=== PATIENT | male | born 1980 | race Caucasian/White ===

== ENCOUNTER 2019-03-19 00:17 | Emergency (ER) | payer OTHER ==
[2019-03-19 01:18] VITALS: BMI 38.3
--- NOTE | 2019-03-19 01:39 | PDOC ---
History of Present Illness - General Chief Complaint: Headache Stated Complaint: HEADACHE/CHEST DISCOMFORT Time Seen by Provider: 03/19/19 01:39 History Source: Patient Exam Limitations: No Limitations - History of Present Illness Initial Comments: Pt is a 39 yo M, with PMH of HLD and asthma, who is presenting with complaints of L-sided headache, vertigo, and chest pressure since yesterday morning. Pt states he has been lying in bed when the pain starts, with no exertion or trauma. Pt states he has substernal chest pressure that does not radiate, and is associated with SOB and vertigo, lasting for about 15 minutes. Pt states this is not similar to his asthma exacerbations, and he has no history of anxiety or panic attacks. Pt states he has not f/u'd with his PCP and has not been taking his prescribed medications. Pt denies any fevers/chills, headache, vision changes, syncope, palpitations, nausea/vomiting, abdominal pain, urinary symptoms, diarrhea/constipation, or leg swelling. Allergies: NKDA PCP: none Social: Pt denies any cigarette, alcohol, or drug use. Pt denies any recent travel or sick contacts. Surgical: no relevant history. Family: no relevant history. 03/19/19 04:26 Past History - Travel Traveled outside of the country in the last 30 days: No Close contact w/someone who was outside of country & ill: No - Past Medical History Allergies/Adverse Reactions: Allergies Allergy/AdvReac Type Severity Reaction Status Date / Time No Known Allergies Allergy Verified 03/19/19 01:18 Asthma: Yes COPD: No - Immunization History Immunization Up to Date: Yes - Suicide/Smoking/Psychosocial Hx Smoking History: Never smoked Have you smoked in the past 12 months: No Information on smoking cessation initiated: No Hx Alcohol Use: Yes Drug/Substance Use Hx: No Neuro Specific PMHX - Complaint Specific PMHX Glaucoma: No Herniated Disk: No Laminectomy: No Migraine: No Multiple Sclerosis: No Neuropathy: No TIA: No Review of Systems - Review of Systems Able to Perform ROS?: Yes Is the patient limited Swedish proficient: No Constitutional: Yes: Weight Stable. No: Chills, Diaphoresis, Fever, Loss of Appetite, Malaise, Weakness HEENTM: No: Blurred Vision, Recent change in vision, Double Vision, Nose Congestion, Throat Pain, Throat Swelling, Difficulty Swallowing Respiratory: Yes: Shortness of Breath, SOB at Rest. No: Cough, Orthopnea, Wheezing, Productive cough, Hemoptysis Cardiac (ROS): Yes: Chest Pain. No: Edema, Irregular Heart Rate, Lightheadedness, Palpitations, Syncope, Chest Tightness ABD/GI: No: Diarrhea, Nausea, Poor Appetite, Poor Fluid Intake, Vomiting, Abdominal cramping : No: Burning, Dysuria, Pain, Urgency Musculoskeletal: No: Back Pain, Joint Pain, Joint Swelling, Muscle Pain, Muscle Weakness, Neck Pain Integumentary: No: Rash Neurological: Yes: See HPI, Headache, Paresthesia, Dizziness (vertigo). No: Numbness, Weakness, Unsteady Gait Psychiatric: No: Sleep Pattern Change, Change in Appetite Endocrine: No: Increased Urine, Change in Weight Hematologic/Lymphatic: No: Anemia, Blood Clots, Easy Bleeding, Easy Bruising All Other Systems: Reviewed and Negative *Physical Exam - Vital Signs Last Vital Signs Temp Pulse Resp BP Pulse Ox 98.2 F 100 H 16 128/90 98 03/19/19 00:17 03/19/19 00:17 03/19/19 00:17 03/19/19 00:17 03/19/19 00:17 - Physical Exam Comments: Tachycardic to low 100s, pt afebrile. Pt in NAD, obese body habitus. Pt alert and oriented x3. classer generally intact, muscular strength and sensation intact. No midline spinal tenderness, step-offs, or crepitus. Head normocephalic, atraumatic. Eyes PERRLA, EOMI. Oropharynx without erythema or exudates, no LAD b/l. Dry mucous membranes. No nasal congestion, hearing intact. Clear heart sounds, S1/S2, no JVD, b/l pedal edema, or heart murmur. Clear lung sounds, no respiratory distress, wheezes, crackles, or accessory muscle use. No abdominal or CVA tenderness to palpation, no rebound, no guarding. Abdomen soft, non-distended, and with normoactive bowel sounds. Skin without jaundice or rash. 03/19/19 02:14 ED Treatment Course - LABORATORY CBC & Chemistry Diagram: 03/19/19 02:00 03/19/19 02:00 Medical Decision Making - Medical Decision Making Pt was seen at bedside, also will be seen by attending Dr. Pan. Pt presenting with complaints of L-sided headache, vertigo, and chest pressure since yesterday morning. Pt states he has been lying in bed when the pain starts, with no exertion or trauma. Pt states he has substernal chest pressure that does not radiate, and is associated with SOB and vertigo, lasting for about 15 minutes. Pt states this is not similar to his asthma exacerbations, and he has no history of anxiety or panic attacks. Pt states he has not f/u'd with his PCP and has not been taking his prescribed medications. Pt denies any fevers/chills , headache, vision changes, syncope, palpitations, nausea/vomiting, abdominal pain, urinary symptoms, diarrhea/constipation, or leg swelling. Considering migraine vs ACS/atypical chest pain/angina vs electrolyte imbalance. Ordered work-up including CBC, CMP, Mg, coags, cardiac profile, chest x-ray, EKG. Provided 1 L IV NS, 25 mg IV benadryl, 10 mg IV reglan, and 1 g IV ofirmev for improvement of headache and chest pressure. Will continue to reassess pt and monitor for symptomatic improvement. ECG: NSR, intervals WNL (HR 91, IL 138, QRS 82, QTc 423). No TWIs or significant ST segment changes. No significant changes from prior ECG (December 2017). 03/19/19 02:15 CBC, CMP WNL, mild elevations in LFTs, will have pt f/u with PCP Chest x-ray shows no acute pathology (read with Dr. Pan). ECG WNL. Pt states pain improved significantly after interventions. HR improved after IVFs. Considering normal lab results and imaging, pt can be discharged to home with follow-up. Pt advised to follow-up with PCP in 1-2 days. Strict return precautions provided with pt understanding. 03/19/19 04:21 *DC/Admit/Observation/Transfer Diagnosis at time of Disposition: Chest pain Qualifiers: Chest pain type: unspecified Qualified Code(s): R07.9 - Chest pain, unspecified Headache Qualifiers: Headache type: unspecified Headache chronicity pattern: acute headache Intractability: not intractable Qualified Code(s): R51 - Headache - Discharge Dispostion Disposition: HOME Condition at time of disposition: Improved Decision to Admit order: No - Referrals Referrals: [facility] [place] [facility] [place] [Provider Group] - Patient Instructions Printed Discharge Instructions: DI for Atypical Chest Pain Additional Instructions: You were seen in the ER today for headache and chest pain. The results of your labs and imaging today were normal, except for mild elevations of your liver enzymes. Please follow-up with your primary care doctor within 1-2 days to discuss your visit and make sure your symptoms have improved. Please return to the ER if you have any worsening pain, development of fevers or chills, loss of consciousness, inability to tolerate food or fluids, or any other concerns. - Post Discharge Activity Forms/Work/School Notes: Back to Work
[2019-03-19] MEDS ORDERED: METOCLOPRAMIDE HCL INJECTION 10 MG/2 ML VIAL IVPUSH ONE (02:01)
[2019-03-19] MEDS ORDERED: ACETAMINOPHEN 1000 MG/100 ML VIAL (NON FORMULARY) IVPB ONE (02:01)
[2019-03-19] MEDS ORDERED: SODIUM CHLORIDE 1,000 ML IV STA (02:03)
[2019-03-19 02:17] LABS: BASO % 0.7 % (0-2.0); EOS % 1.4 % (0-4.5); HEMATOCRIT 43.4 % (35.4-49); HEMOGLOBIN 14.3 GM/dL (11.7-16.9); LYMPH % 36.1 % (8-40); MCH 28.5 pg (25.7-33.7); MEAN CELL VOLUME 86.5 fl (80-96); MONO % 9.7 % (3.8-10.2); NEUT % 52.1 % (42.8-82.8); PLATELET COUNT 203 K/MM3 (134-434); RBC 5.01 M/mm3 (4.00-5.60); WHITE BLOOD COUNT 6.1 K/mm3 (4.0-10.0)
[2019-03-19] MEDS ORDERED: METOCLOPRAMIDE HCL INJECTION 10 MG/2 ML VIAL ONE (02:27)
[2019-03-19] MEDS ORDERED: ACETAMINOPHEN INJECTION 100 ML IVPB ONE (02:27)
[2019-03-19 02:36] LABS: INR 0.9 (0.83-1.09); PROTHROMBIN TIME (PATIENT) 10.6 SEC (9.7-13.0)
[2019-03-19 03:06] LABS: ALBUMIN 3.9 g/dl (3.4-5.0); ALK PHOS 95 U/L (45-117); ANION GAP 5 MMOL/L (8-16); BILIRUBIN,TOTAL 0.2 mg/dL (0.2-1); BLOOD UREA NITROGEN 17.9 mg/dL (7-18); CHLORIDE 105 mmol/L (98-107); CO2 28 mmol/L (21-32); CREATININE 0.9 mg/dL (0.55-1.3); GLUCOSE,RANDOM 104 mg/dL (74-106); MAGNESIUM 2.1 mg/dL (1.8-2.4); POTASSIUM 4.6 mmol/L (3.5-5.1); SGOT/AST 54 U/L (15-37); SGPT/ALT 134 U/L (13-61); SODIUM 139 mmol/L (136-145); TOT PROT 7.5 g/dl (6.4-8.2)
--- NOTE | 2019-03-19 04:07 | PDOC ---
Attending Attestation - Resident Resident Name: Rosie Peng - ED Attending Attestation I have performed the following: I have examined & evaluated the patient, The case was reviewed & discussed with the resident, I agree w/resident's findings & plan, Exceptions are as noted - HPI HPI: 03/19/19 04:04 39 M with no PMH presenting with 1 day of chest pain and headaches. Pt states that his headache and chest pain began at the same time last night. States that the pain is L sided, non-radiating. It was associated with SOB, but this has resolved. Pt also reports resolution of his chest pain after several hours. However, pt states that his headache is persistent. It is also left-sided. Not associated with nausea or vomiting. No F/C. No neck pain. Denies worst headache of life, denies thunderclap. - Physicial Exam PE: 03/19/19 04:05 "GENERAL: Awake, alert, and fully oriented, in no acute distress. HEAD: No signs of trauma EYES: PERRLA, EOMI, sclera anicteric, conjunctiva clear ENT: Auricles normal inspection, hearing grossly normal, nares patent, oropharynx clear without exudates. Moist mucosa NECK: Nontender, no stepoffs, Normal ROM, supple, no lymphadenopathy, JVD, or masses LUNGS: Breath sounds equal, clear to auscultation bilaterally. No wheezes, and no crackles HEART: Regular rate and rhythm, normal S1 and S2, no murmurs, rubs or gallops ABDOMEN: Soft, nontender, normoactive bowel sounds. No guarding, no rebound. No masses EXTREMITIES: Normal range of motion, no edema. No clubbing or cyanosis. No cords, erythema, or tenderness NEUROLOGICAL: Cranial nerves II through XII intact. 5/5 strength and sensation in all extremities, Normal speech, normal gait, normal cerebellar function SKIN: Warm, Dry, normal turgor, no rashes or lesions noted. - Medical Decision Making 03/19/19 04:05 39 M with L sided chest pain and SOB, now resolved, as well as headache. EKG without any evidence of ischemia. Pt is mildly tachycardic, so will r/o PE with ddimer. Pt without any signs of meningitis/SAH. - Labs, trop, ddimer - IVF, tylenol, reglan - Reassess 03/19/19 04:15 Labs wnl, dimer negative, trop negative CXR clear on my read PT reassessed - now with complete resolution of SHEN. COntinues to deny CP/SOB. Pt is well appearing, with normal vitals. Clinically stable for DC at this time. I discussed the physical exam findings, ancillary test results and final diagnoses with the patient. I answered all of the patient's questions. The patient was satisfied with the care received and felt comfortable with the discharge plan and treatment plan. The patient agrees to follow up with the primary care physician within 24-72 hours.
[2019-03-19 04:37] VITALS: BP 126/81; PULSE 91; TEMP 97.9
--- NOTE | 2019-03-19 11:14 | EKG ---
Test Reason : Blood Pressure : / mmHG Vent. Rate : 091 BPM Atrial Rate : 091 BPM P-R Int : 138 ms QRS Dur : 082 ms QT Int : 344 ms P-R-T Axes : 044 060 011 degrees QTc Int : 423 ms NORMAL SINUS RHYTHM NORMAL ECG WHEN COMPARED WITH ECG OF 23-DEC-2017 00:18, NO SIGNIFICANT CHANGE WAS FOUND Confirmed by CALI BOLIVAR MD ([id number]) on 03/19/2019 11:14:41 AM Referred By: Confirmed By:CALI BOLIVAR MD
== END 2019-03-19 04:42 | disposition home or self-care (01) ==
LOC: JER 00:17
PROC: 3E033NZ Introduction of Analgesics, Hypnotics, Sedatives into Peripheral Vein, Percutaneous Approach (ICD-10-PCS; principal; 2019-03-19)
PROC: 3E033GC Introduction of Other Therapeutic Substance into Peripheral Vein, Percutaneous Approach (ICD-10-PCS; 2019-03-19)
PROC: 3E0337Z Introduction of Electrolytic and Water Balance Substance into Peripheral Vein, Percutaneous Approach (ICD-10-PCS; 2019-03-19)
DX: R51 Headache (principal)
CPT/HCPCS: 36415; 71046-TC-FY; 80053; 82550; 82553; 83735; 84484; 85025; 85379; 85610; 93005; 93010; 96361; 96374; 96375; 96376; 99283-25; J0131; J7030

== ENCOUNTER 2019-06-13 14:41 | Emergency (ER) | payer OTHER ==
--- NOTE | 2019-06-13 15:22 | PDOC ---
Rapid Medical Evaluation Time Seen by Provider: 06/13/19 15:21 Medical Evaluation: Allergies Allergy/AdvReac Type Severity Reaction Status Date / Time No Known Allergies Allergy Verified 03/19/19 01:18 06/13/19 15:21 CC: retrosternal sharp pain after eating [employer]. +SOB PE: pain reproducible over sternum. No m/r/g. Orders: ekg, labs, CXR Patient will proceed to ER for further evaluation. Discharge Disposition - Diagnosis Chest pain - Referrals - Patient Instructions - Post Discharge Activity
[2019-06-13 15:23] VITALS: BMI 34.8
[2019-06-13] MEDS ORDERED: MAG HYDROX/AL HYDROX/SIMETH 30 ML UNIT-DOSE CUP PO ONE (15:23)
[2019-06-13] MEDS ORDERED: LIDOCAINE VISCOUS 2% ORAL/TOP 20 ML UNIT-DOSE CUP PO ONE (15:23)
[2019-06-13 16:00] LABS: BASO % 0.9 % (0-2.0); EOS % 0.8 % (0-4.5); HEMOGLOBIN 15.6 GM/dL (11.7-16.9); LYMPH % 33.4 % (8-40); MCH 28.8 pg (25.7-33.7); MCHC 33.2 g/dl (32.0-35.9); MEAN CELL VOLUME 86.7 fl (80-96); MEAN PLT VOLUME 8.9 fl (7.5-11.1); MONO % 7.5 % (3.8-10.2); NEUT % 57.4 % (42.8-82.8); PH,URINE 6.5 (5.0-8.0); PLATELET COUNT 231 K/MM3 (134-434); RBC 5.42 M/mm3 (4.00-5.60); RDW 14.1 % (11.9-15.9); URINE APPEARANCE CLEAR; URINE BILIRUBIN NEGATIVE (NEGATIVE); URINE COLOR YELLOW; URINE GLUCOSE (UA) NEGATIVE (NEGATIVE); URINE KETONE TRACE (NEGATIVE); URINE LEUK ESTERASE NEGATIVE (NEGATIVE); URINE NITRITE NEGATIVE (NEGATIVE); URINE PROTEIN NEGATIVE (NEGATIVE); WHITE BLOOD COUNT 5.7 K/mm3 (4.0-10.0)
[2019-06-13 16:18] LABS: INR 0.95 (0.83-1.09); PROTHROMBIN TIME (PATIENT) 11.2 SEC (9.7-13.0)
[2019-06-13] MEDS ORDERED: ALPRAZolam 0.25 MG TABLET PO ONE (16:28)
[2019-06-13 16:31] LABS: ALBUMIN 4.3 g/dl (3.4-5.0); BILIRUBIN,TOTAL 0.6 mg/dL (0.2-1); BLOOD UREA NITROGEN 13.7 mg/dL (7-18); CALCIUM 9.1 mg/dL (8.5-10.1); CREATININE 1.2 mg/dL (0.55-1.3); MAGNESIUM 2.2 mg/dL (1.8-2.4); TOT PROT 7.7 g/dl (6.4-8.2)
[2019-06-13] MEDS ORDERED: ALPRAZolam 0.25 MG TABLET ONE (16:40)
[2019-06-13] MEDS ORDERED: LIDOCAINE VISCOUS 2% ORAL/TOP 20 ML UNIT-DOSE CUP ONE (16:40)
[2019-06-13] MEDS ORDERED: MAG HYDROX/AL HYDROX/SIMETH 30 ML UNIT-DOSE CUP ONE (16:41)
--- NOTE | 2019-06-13 16:41 | PDOC ---
Attending Attestation - Resident Resident Name: Kenneth Pena - ED Attending Attestation I have performed the following: I have examined & evaluated the patient, The case was reviewed & discussed with the resident, I agree w/resident's findings & plan, Exceptions are as noted - HPI HPI: 06/13/19 16:39 39-year-old male complains of atraumatic sharp pleuritic left sided anterior chest wall pain associated with palpitations and shortness of breath shortly prior to arrival. Patient denies fever/chills/cigarette smoke/toxic ingestion. - Physicial Exam PE: 06/13/19 16:39 Patient is awake and alert, well-nourished, anxious appearing, tachycardic Normocephalic, atraumatic PERRLA, EOMI No JVD Lungs are clear Tachycardic, regular No lower extremity edema Abdomen is soft, nontender nondistended - Medical Decision Making 06/13/19 16:40 Patient is an anxious appearing 39-year-old male who presents with atraumatic pleuritic left-sided chest discomfort. EKG reveals no evidence of acute ischemia or right-sided heart strain, sinus tachycardia is noted. Differential diagnosis includes pneumothorax versus PE versus musculoskeletal pain with associated anxiety. Will obtain CBC/CMP/d-dimer. Will obtain chest x-ray with inspiratory and expiratory phases. Will obtain bedside ultrasound. Will administer p.o. Xanax for anxiety. Will reassess.
--- NOTE | 2019-06-13 16:50 | PDOC ---
History of Present Illness - General Chief Complaint: Chest Pain Stated Complaint: CHEST PAIN/ SOB Time Seen by Provider: 06/13/19 15:21 History Source: Patient Exam Limitations: No Limitations - History of Present Illness Initial Comments: 06/13/19 16:15 Aleks Shaw is a 39M with PMH asthma presenting with one day acute onset chest pain. Patient reports eating chicken at [facility] 3 hours [employer]. Then began to drive on [address] when he began having sudden onset L-sided chest pain, non-radiating, described as sharp and with a pressure on his chest. Non-radiating. Denies any history of GERD, no nausea, no vomiting. 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 Has had one episode of a similar chest pain in the past which he says is related to bed bugs, was living in a house with poor ventilation and full of bed bugs and began having chest pain and SOB. Denies any other cardiac history in self or family. History of asthma with an inhaler, has not used recently. NKDA. No medications taken. Reports hospital stay for gastritis related to taking Aleve a few months ago. Past History - Past Medical History Allergies/Adverse Reactions: Allergies Allergy/AdvReac Type Severity Reaction Status Date / Time No Known Allergies Allergy Verified 06/13/19 15:23 Asthma: Yes COPD: No Hypercholesterolemia: Yes - Immunization History Immunization Up to Date: Yes - Psycho Social/Smoking Cessation Hx Smoking History: Never smoked Have you smoked in the past 12 months: No Information on smoking cessation initiated: No Hx Alcohol Use: No Drug/Substance Use Hx: No Review of Systems - Review of Systems Constitutional: No: Chills, Fever HEENTM: No: Symptoms Reported Respiratory: No: Cough, Shortness of Breath, Wheezing Cardiac (ROS): Yes: Chest Pain, Chest Tightness. No: Lightheadedness, Palpitations, Syncope ABD/GI: No: Symptoms Reported : No: Symptoms Reported Musculoskeletal: No: Symptoms Reported Integumentary: No: Symptoms Reported Neurological: No: Symptoms reported Psychiatric: Yes: Anxiety Endocrine: No: Symptoms Reported Hematologic/Lymphatic: No: Symptoms Reported All Other Systems: Reviewed and Negative *Physical Exam - Vital Signs Last Vital Signs Temp Pulse Resp BP Pulse Ox 97.9 F 112 H 19 112/75 97 06/13/19 15:21 06/13/19 15:21 10/02/19 15:21 06/13/19 15:21 06/13/19 15:21 - Physical Exam General Appearance: Yes: Nourished, Appropriately Dressed, Mild Distress, Obese HEENT: positive: EOMI, MARY, Normal Voice, Symmetrical, Pharynx Normal, Hearing Grossly Normal. negative: Scleral Icterus (R), Scleral Icterus (L), Pharyngeal Erythema, Tonsillar Exudate, Tonsillar Erythema Neck: positive: Normal Thyroid, Supple. negative: Tender, Lymphadenopathy (R), Lymphadenopathy (L) Respiratory/Chest: positive: Chest Tender (reproducible chest tenderness L pectoral), Lungs Clear, Normal Breath Sounds. negative: Respiratory Distress, Accessory Muscle Use, Crackles, Rales, Rhonchi Cardiovascular: positive: Regular Rhythm, Tachycardia. negative: Murmur Gastrointestinal/Abdominal: positive: Normal Bowel Sounds, Flat, Soft. negative : Tender, Guarding, Rebound Musculoskeletal: positive: Normal Inspection. negative: CVA Tenderness Extremity: positive: Normal Capillary Refill, Normal Inspection, Normal Range of Motion, Tender Integumentary: positive: Normal Color, Dry, Warm Neurologic: positive: Fully Oriented, Alert, Normal Mood/Affect, Normal Response ED Treatment Course - LABORATORY CBC & Chemistry Diagram: 06/13/19 15:39 06/13/19 15:39 - ADDITIONAL ORDERS Additional order review: Laboratory Results 06/13/19 06/13/19 06/13/19 15:39 15:39 15:39 PT with INR 11.20 INR 0.95 Sodium 141 Potassium 4.0 Chloride 106 Carbon Dioxide 29 Anion Gap 6 L BUN 13.7 Creatinine 1.2 Est GFR (CKD-EPI)AfAm 89.00 Est GFR (CKD-EPI)NonAf 76.79 Random Glucose 119 H Calcium 9.1 Magnesium 2.2 Total Bilirubin 0.6 AST 34 ALT 85 H Alkaline Phosphatase 78 Creatine Kinase Troponin I Total Protein 7.7 Albumin 4.3 Urine Color Yellow Urine Appearance Clear Urine pH 6.5 Ur Specific [place] 1.023 Urine Protein Negative Urine Glucose (UA) Negative Urine Ketones Trace H Urine Blood Negative Urine Nitrite Negative Urine Bilirubin Negative Urine Urobilinogen 1.0 Ur Leukocyte Esterase Negative 06/13/19 15:39 PT with INR INR Sodium Potassium Chloride Carbon Dioxide Anion Gap BUN Creatinine Est GFR (CKD-EPI)AfAm Est GFR (CKD-EPI)NonAf Random Glucose Calcium Magnesium Total Bilirubin AST ALT Alkaline Phosphatase Creatine Kinase 249 Troponin I < 0.02 Total Protein Albumin Urine Color Urine Appearance Urine pH Ur Specific [place] Urine Protein Urine Glucose (UA) Urine Ketones Urine Blood Urine Nitrite Urine Bilirubin Urine Urobilinogen Ur Leukocyte Esterase 06/13/19 15:39 RBC 5.42 MCV 86.7 MCHC 33.2 RDW 14.1 MPV 8.9 Neutrophils % 57.4 Lymphocytes % 33.4 Monocytes % 7.5 Eosinophils % 0.8 Basophils % 0.9 - Medications Given in the ED: ED Medications Discontinued Medications Generic Name Dose Route Start Last Admin Trade Name Freq PRN Reason Stop Dose Admin Al Hydroxide/Mg Hydroxide 30 ml 06/13/19 15:23 06/13/19 16:45 Mylanta Oral Suspension - PO 06/13/19 15:24 30 ml ONCE ONE Administration Alprazolam 0.5 mg 06/13/19 16:28 06/13/19 16:45 Xanax - PO 06/13/19 16:29 0.5 mg ONCE ONE Administration Lidocaine HCl 20 ml 06/13/19 15:23 06/13/19 16:45 Xylocaine 2% Viscous Oral - PO 06/13/19 15:24 20 ml ONCE ONE Administration Medical Decision Making - Medical Decision Making 06/13/19 16:15 Aleks Shaw is a 39M with PMH asthma presenting with one day acute onset chest pain. Patient appears anxious and is tachycardic to 110s. Presentation is concerning for [place] vs. PE. cardiac tamponade vs. aortic dissection vs. PTX. Will perform cardiac workup including: ECG CXR CMP CBC CP Mag UA/UC Coags Given Mylanta for concern for GERD. 06/13/19 17:01 Repeat BP both arms shows: L arm 136/86, R arm 124/82. Patient given 5mg Xanax for anxiety, r/o cause of tachycardia as part of PE evaluation. Unable to PERC out, Wells score low meaning initial pre-test probability of PE low: obtaining D-dimer to r/o PE 06/13/19 17:45 D-dimer low, low probability of PE. 06/13/19 18:13 Repeat VS: BP: 135/83 HR: 96 Temp: 97 RR: 16 O2sat: 97 06/13/19 18:15 CXR shows no acute chest pathology. ECG shows sinus tachycardia HR 103, possible [id number]. 06/13/19 19:49 Patient no longer tachycardic, has reproducible chest pain, work-up negative for emergent causes of chest pain. Will discharge home with cardiology and mental health f/u, likely 2/2 costochondritis vs. muscle strain vs. anxiety vs. asthma. Discharge - Discharge Information Problems reviewed: Yes Clinical Impression/Diagnosis: Tachycardia Chest pain Qualifiers: Chest pain type: other chest pain Qualified Code(s): R07.89 - Other chest pain Condition: Stable Disposition: HOME - Admission No - Follow up/Referral Referrals: Yosef Hedrick [Primary Care Provider] - Quinn Garcia MD [Staff Physician] - Boom Sandoval NP [Nurse Practitioner] - - Patient Discharge Instructions Patient Printed Discharge Instructions: DI for Atypical Chest Pain Additional Instructions: Today you were evaluated for chest pain. Given your symptoms, we were most concerned about a heart attack, blood clot in your lungs, collapsed lung, and dissection of your aorta. We evaluated for these concerning diseases with blood labs, a chest X-ray, and an EKG, and we did not find any concerning diseases processes that put your life at risk at this time. You were a bit anxious, so we gave you a medication called Xanax as part of your evaluation. Your pain is likely caused by a pulled muscle, irritation in the cartilage in your ribs, or perhaps due to your asthma or possibly related to anxiety. To relieve your chest pain, please take Tylenol over the counter as labeled on the bottle, as Aleve seems to cause you to have stomach ulcers. Rest your chest muscles but avoiding heavy lifting or exercise of the left arm for a week, and use an ice pack to relieve pain if needed. Please follow-up with your primary doctor in the next 3 days for follow-up care. We have provided you with a referral to a inspector and mender, Dr. Garcia, to further evaluate your chest pain in the future. Please make an appointment to see him in the next week. We have also included a referral to a therapist for anxiety, please see Mr. Sandoval for any needs you may have with stress. If you experience chest pain again, nausea, vomiting, shortness of breath, become unable to breathe, become very sweaty, have palpitations, or have sudden onset chest or arm pain, please return to the closest emergency room. - Post Discharge Activity
[2019-06-13 18:29] VITALS: BP 155/83; PULSE 96; TEMP 97
--- NOTE | 2019-06-14 15:05 | EKG ---
Test Reason : Blood Pressure : / mmHG Vent. Rate : 103 BPM Atrial Rate : 103 BPM P-R Int : 136 ms QRS Dur : 080 ms QT Int : 336 ms P-R-T Axes : 045 055 006 degrees QTc Int : 440 ms SINUS TACHYCARDIA POSSIBLE LEFT ATRIAL ENLARGEMENT BORDERLINE ECG WHEN COMPARED WITH ECG OF 19-MAR-2019 01:47, NO SIGNIFICANT CHANGE WAS FOUND Confirmed by VASU ARROYO MD ([id number]) on 06/14/2019 3:05:24 PM Referred By: Confirmed By:VASU ARROYO MD
== END 2019-06-13 18:56 | disposition home or self-care (01) ==
LOC: JER 14:41
DX: J45.909 Unspecified asthma, uncomplicated (principal); R07.89 Other chest pain; R00.0 Tachycardia, unspecified; E78.00 Pure hypercholesterolemia, unspecified
CPT/HCPCS: 36415; 71046-TC-FY; 80053; 81003; 82550; 82553; 83735; 84484; 85025; 85379; 85610; 93005; 93010; 99282-25

== ENCOUNTER 2022-03-04 08:01 | Emergency (ER) | payer OTHER ==
[2022-03-04 08:24] VITALS: BP 122/85; PULSE 99; TEMP 98; BMI 34.8
== END 2022-03-04 10:11 | disposition home or self-care (01) ==
LOC: JER 08:01 → JERFT 08:01
DX: M54.50 Low back pain, unspecified (principal)
CPT/HCPCS: 72100-TC-FY; 99283-25